=== PATIENT | male | born 1995 | race Hispanic/Latino ===

== ENCOUNTER 2021-08-15 10:25 | Inpatient (IN) | payer OTHER, SELFPAY ==
[2021-08-15] MEDS ORDERED: Boostrix 0.5 ML (Tdap) VIAL ONE (10:30)
[2021-08-15] MEDS ORDERED: Ondansetron PF 4 MG/2 ML Vial ONE ×2 (10:40→20:54)
[2021-08-15 10:54] LABS: Chloride 100 mmol/L (98-107); Potassium 3.2 mmol/L (3.5-5.1); Sodium 137 mmol/L (136-145)
[2021-08-15 10:55] LABS: ALT (SGPT) 85 U/L (8-55); AST (SGOT) 124 U/L (5-34); Albumin 4.6 g/dL (3.5-5.0); Alkaline Phosphatase 89 U/L (40-110); Anion Gap 18 mmol/L (10-20); BUN (Urea Nitrogen) 13 mg/dL (8.9-20.6); Calc. Creatinine Clearance 0 mL/min (70-130); Carbon Dioxide 22 mmol/L (22-29); Globulin 2.8 g/dL (2.4-3.5); Glucose 210 mg/dL (70-105); Lipase 177 U/L (8-78); Protein, Total 7.4 g/dL (6.0-8.3)
[2021-08-15 10:58] LABS: Band 27 % (5-11); Lymphocytes 7 % (21-51); MDiff Complete? YES; Mean Corpuscular HGB CONC 34.3 g/dL (32.0-36.0); Mean Corpuscular Hemoglobin 32.7 pg (27.0-31.0); Mean Corpuscular Volume 95.3 fL (78.0-98.0); Mean Platelet Volume 7.4 fL (7.4-10.4); Metamyelocyte 2 % (0-0); Monocytes 4 % (0-10); Neutrophil 60 % (42-75); Platelet Count 312 thou/uL (130-400); RBC Distribution Width 11.5 % (11.5-14.5)
[2021-08-15 11:41] LABS: SARS-CoV-2 NAA Rapid Test Not Detected (NotDetected)
[2021-08-15] MEDS ORDERED: Fentanyl 100 MCG/2 ML VIAL ONE ×3 (12:08→22:38)
[2021-08-15] MEDS ORDERED: Promethazine HCl 25 MG/ML VIAL ONE (12:16)
[2021-08-15] MEDS ORDERED: Iopamidol 370 76% 100 ML VIAL ONE (12:22)
[2021-08-15 12:25] LABS: Magnesium 1.9 mg/dL (1.6-2.6); Phosphorus 3.1 mg/dL (2.3-4.7)
[2021-08-15] MEDS ORDERED: Ondansetron PF 4 MG/2 ML Vial IVP PRN (12:34)
[2021-08-15] MEDS ORDERED: Dextrose 5% in Water 1,000 ML IV PRN (12:34)
[2021-08-15] MEDS ORDERED: hydrALAZINE 20 MG/ML VIAL SLOW IVP PRN (12:34)
[2021-08-15] MEDS ORDERED: Dextrose 50% Abboject 50 ML SYRINGE SLOW IVP PRN (12:34)
[2021-08-15] MEDS ORDERED: Morphine 4 MG/ML VIAL SLOW IVP PRN (12:34)
[2021-08-15] MEDS ORDERED: traMADol HCl 50 MG TAB PO PRN (12:39)
[2021-08-15] MEDS ORDERED: Potassium Phosphate 30 MMOL in Sodium Chloride 0.9% 250 ML 250 ML IVPB SCH (12:45)
[2021-08-15] MEDS ORDERED: Morphine 4 MG/ML VIAL ONE (13:53)
[2021-08-15] MEDS ORDERED: ceFAZolin Sodium (SDC) 2 GM in Premix Bag 1 BAG IVPB SCH (14:00)
[2021-08-15] MEDS ORDERED: CEFAZOLIN 1 GM VIAL SLOW IVP SCH (14:00)
[2021-08-15] MEDS ORDERED: Midazolam HCl 2 mg/2 ml Vial ONE (14:37)
[2021-08-15] MEDS ORDERED: Dexmedetomidine 200 MCG/2 ML VIAL ONE (14:37)
[2021-08-15] MEDS ORDERED: Phenylephrine 10 MG/ML VIAL ONE ×2 (14:38→21:14)
[2021-08-15 19:00] LABS: Bilirubin Negative (Negative); Blood, Urine Large (Negative); Glucose, Urine (Dipstick) Negative (Negative); Ketone, Urine 15 mg/dL (Negative); Leukocyte Negative (Negative); Nitrite Negative (Negative); Protein, Urine (Dipstick) 30 mg/dL (Neg-Trace); Urobilinogen 0.2 mg/dL (Less than 2); pH, Urine 5.5 (5.0-9.0)
[2021-08-15 19:04] LABS: Clarity Clear (Clear)
[2021-08-15 19:06] LABS: Squamous Epithelial 0-3 HPF (0-3)
[2021-08-15 19:10] LABS: Amphetamine Not Detected (NotDetected); Barbiturates Screen Not Detected (NotDetected); Benzodiazepine Screen Not Detected (NotDetected); Cocaine Metabolite Screen Not Detected (NotDetected); Methadone Not Detected (NotDetected); Methamphetamine Not Detected (NotDetected); Opiate Screen Detected (NotDetected); Oxycodone Screen Not Detected (NotDetected); Phencyclidine (PCP) Not Detected (NotDetected); THC/Cannabinoid Screen Detected (NotDetected); Tricyclic Screen Not Detected (NotDetected)
[2021-08-15] MEDS ORDERED: PHENYLEPHRINE-NS 100 MCG/ML 10 ML SYRINGE ONE (20:54)
[2021-08-15] MEDS ORDERED: Rocuronium Bromide 10 MG/ML (10ML VIAL) ONE (20:54)
[2021-08-15] MEDS ORDERED: PROPOFOL 200 MG/20 ML VIAL ONE (20:54)
[2021-08-15] MEDS ORDERED: ePHEDrine 50 MG/ML VIAL ONE (20:54)
[2021-08-15] MEDS ORDERED: Lidocaine 1% PF 5 ML VIAL ONE (20:54)
[2021-08-15] MEDS ORDERED: Esmolol 100 MG/10 ML VIAL ONE (20:54)
[2021-08-15] MEDS ORDERED: Glycopyrrolate 0.2 MG/ML 5 ML SYRINGE ONE (20:54)
[2021-08-15] MEDS ORDERED: Dexamethasone 20 MG/5 ML VIAL ONE (20:54)
[2021-08-15] MEDS ORDERED: HYDROmorphone 2 MG/ML VIAL ONE (21:53)
[2021-08-16 00:15] LABS: #Lymphocytes 1.1 thou/uL (1.20-3.40); #Monocytes 1.1 thou/uL (0.11-0.59); #Neutrophils 14.1 thou/uL (1.40-6.50); %Basophils 0.1 % (0.0-1.0); %Eosinophils 0.1 % (0.0-10.0); %Lymphocytes 6.9 % (21.0-51.0); %Monocytes 6.6 % (0.0-10.0); %Neutrophils 86.2 % (42.0-75.0); Hemoglobin 8.2 g/dL (14.0-18.0); Mean Corpuscular HGB CONC 36.6 g/dL (32.0-36.0); Mean Corpuscular Hemoglobin 34.4 pg (27.0-31.0); Mean Corpuscular Volume 93.9 fL (78.0-98.0); Mean Platelet Volume 7.4 fL (7.4-10.4); Platelet Count 157 thou/uL (130-400); RBC Distribution Width 11.3 % (11.5-14.5); Red Blood Cell (RBC) Count 2.39 mill/uL (4.70-6.10); White Blood Cell (WBC) Count 16.3 thou/uL (4.8-10.8)
[2021-08-16] MEDS ORDERED: Promethazine HCl 25 MG/ML VIAL ONE (00:56)
[2021-08-16] MEDS ORDERED: HYDROmorphone 2 MG/ML VIAL SLOW IVP PRN (01:04)
[2021-08-16] MEDS ORDERED: Promethazine HCl 25 MG/ML VIAL IM PRN (01:04)
[2021-08-16] MEDS ORDERED: Promethazine HCl 25 MG/ML VIAL IVPB PRN (01:04)
[2021-08-16] MEDS ORDERED: Ondansetron HCl/PF 4 MG/2 ML Vial IVP PRN (01:04)
[2021-08-16 01:09] VITALS: BMI 28.0
[2021-08-16] MEDS ORDERED: Fentanyl 100 MCG/2 ML VIAL ONE (01:11)
[2021-08-16] MEDS: Sodium Chloride 0.9% 1,000 ML IV SCH ×3 (03:24→05:46)
[2021-08-16] MEDS: Gabapentin 300 MG CAP PO SCH ×5 (03:25→21:02)
[2021-08-16] MEDS: Acetaminophen 500 MG TAB PO SCH ×5 (03:26→23:52)
[2021-08-16] MEDS: CEFAZOLIN 2 GM, Admixture Fee 1 EACH in Sodium Chloride 0.9% 100 ML IVPB SCH ×2 (03:27→05:46)
[2021-08-16] MEDS: Famotidine 20 MG TAB PO SCH ×3 (03:27→21:02)
[2021-08-16] MEDS: Senokot S 8.6-50 MG TAB PO SCH ×3 (03:27→21:02)
[2021-08-16 06:03] LABS: #Lymphocytes 1.9 thou/uL (1.20-3.40); #Monocytes 1.8 thou/uL (0.11-0.59); #Neutrophils 15.6 thou/uL (1.40-6.50); %Basophils 0.1 % (0.0-1.0); %Lymphocytes 9.8 % (21.0-51.0); %Monocytes 9.4 % (0.0-10.0); %Neutrophils 80.7 % (42.0-75.0); Hemoglobin 7.3 g/dL (14.0-18.0); Mean Corpuscular HGB CONC 34.5 g/dL (32.0-36.0); Mean Corpuscular Hemoglobin 32.8 pg (27.0-31.0); Mean Platelet Volume 7.8 fL (7.4-10.4); Platelet Count 154 thou/uL (130-400); RBC Distribution Width 11.2 % (11.5-14.5); Red Blood Cell (RBC) Count 2.23 mill/uL (4.70-6.10); White Blood Cell (WBC) Count 19.3 thou/uL (4.8-10.8)
[2021-08-16 06:40] LABS: ALT (SGPT) 47 U/L (8-55); AST (SGOT) 109 U/L (5-34); Albumin 3.2 g/dL (3.5-5.0); Alkaline Phosphatase 46 U/L (40-110); Anion Gap 13 mmol/L (10-20); BUN (Urea Nitrogen) 17 mg/dL (8.9-20.6); Bilirubin, Total 0.6 mg/dL (0.2-1.2); Calc. Creatinine Clearance 171 mL/min (70-130); Calcium 8.1 mg/dL (7.8-10.44); Carbon Dioxide 21 mmol/L (22-29); Chloride 106 mmol/L (98-107); Globulin 1.6 g/dL (2.4-3.5); Glucose 166 mg/dL (70-105); Lipase 29 U/L (8-78); Magnesium 1.5 mg/dL (1.6-2.6); Phosphorus 3.1 mg/dL (2.3-4.7); Potassium 4.5 mmol/L (3.5-5.1); Protein, Total 4.8 g/dL (6.0-8.3); Sodium 135 mmol/L (136-145)
[2021-08-16] MEDS: Polyethylene Glycol 3350 17 GM Packet PO SCH ×2 (08:53→17:37)
[2021-08-16] MEDS ORDERED: Magnesium Sulfate 4 GM in Sodium Chloride 0.9% 250 ML 250 ML IVPB SCH (09:00)
[2021-08-16] MEDS: Erythromycin Base 0.5% Oint 1 GM TUBE EA EYE SCH (21:01)
[2021-08-17 05:31] LABS: #Lymphocytes 2.4 thou/uL (1.20-3.40); #Monocytes 1.1 thou/uL (0.11-0.59); %Basophils 0.1 % (0.0-1.0); %Eosinophils 0.1 % (0.0-10.0); %Lymphocytes 22.9 % (21.0-51.0); %Monocytes 10.7 % (0.0-10.0); %Neutrophils 66.3 % (42.0-75.0); Mean Corpuscular HGB CONC 34.5 g/dL (32.0-36.0); Mean Corpuscular Hemoglobin 32.8 pg (27.0-31.0); Mean Corpuscular Volume 95.1 fL (78.0-98.0); Mean Platelet Volume 7.3 fL (7.4-10.4); Platelet Count 135 thou/uL (130-400); RBC Distribution Width 11.3 % (11.5-14.5); Red Blood Cell (RBC) Count 1.51 mill/uL (4.70-6.10); White Blood Cell (WBC) Count 10.5 thou/uL (4.8-10.8)
[2021-08-17 05:38] LABS: Anion Gap 8 mmol/L (10-20); BUN (Urea Nitrogen) 10 mg/dL (8.9-20.6); Calc. Creatinine Clearance 176 mL/min (70-130); Carbon Dioxide 26 mmol/L (22-29); Chloride 107 mmol/L (98-107); Glucose 111 mg/dL (70-105); Magnesium 1.9 mg/dL (1.6-2.6); Phosphorus 1.7 mg/dL (2.3-4.7); Potassium 3.9 mmol/L (3.5-5.1); Sodium 137 mmol/L (136-145)
[2021-08-17] MEDS: Acetaminophen 500 MG TAB PO SCH ×4 (06:49→23:48)
[2021-08-17] MEDS ORDERED: Magnesium 2 GM/50 ML 2 GM in Premix Bag 1 BAG IVPB SCH (07:30)
[2021-08-17] MEDS ORDERED: Sodium Phosphate 30 MMOL in Sodium Chloride 0.9% 250 ML 250 ML IVPB SCH (07:45)
[2021-08-17] MEDS ORDERED: Ferrous Sulfate 325 MG TAB PO SCH (08:00)
[2021-08-17] MEDS: Polyethylene Glycol 3350 17 GM Packet PO SCH (08:28)
[2021-08-17] MEDS: Ascorbic Acid 500 mg Chewable Tablet PO SCH ×2 (08:28→20:27)
[2021-08-17] MEDS: traMADol HCl 50 MG TAB PO PRN (08:28)
[2021-08-17] MEDS: Senokot S 8.6-50 MG TAB PO SCH ×2 (08:29→20:29)
[2021-08-17] MEDS: Famotidine 20 MG TAB PO SCH ×2 (08:30→20:28)
[2021-08-17] MEDS: Gabapentin 300 MG CAP PO SCH ×3 (08:30→20:29)
[2021-08-17] MEDS: Erythromycin Base 0.5% Oint 1 GM TUBE EA EYE SCH ×2 (08:31→20:28)
[2021-08-17] MEDS: Ferrous Sulfate 325 MG TAB PO SCH ×2 (08:37→20:28)
[2021-08-18] MEDS: Acetaminophen 500 MG TAB PO SCH ×3 (06:14→18:36)
[2021-08-18 06:21] LABS: #Lymphocytes 2.2 thou/uL (1.20-3.40); #Monocytes 0.9 thou/uL (0.11-0.59); #Neutrophils 6.9 thou/uL (1.40-6.50); %Basophils 0.1 % (0.0-1.0); %Eosinophils 0.4 % (0.0-10.0); %Monocytes 9.3 % (0.0-10.0); %Neutrophils 68.3 % (42.0-75.0); Hemoglobin 6.2 g/dL (14.0-18.0); Mean Corpuscular HGB CONC 34.2 g/dL (32.0-36.0); Mean Corpuscular Hemoglobin 32.5 pg (27.0-31.0); Mean Corpuscular Volume 95.1 fL (78.0-98.0); Mean Platelet Volume 6.8 fL (7.4-10.4); Platelet Count 143 thou/uL (130-400); RBC Distribution Width 12.2 % (11.5-14.5); Red Blood Cell (RBC) Count 1.92 mill/uL (4.70-6.10); White Blood Cell (WBC) Count 10.1 thou/uL (4.8-10.8)
[2021-08-18 07:01] LABS: Anion Gap 8 mmol/L (10-20); BUN (Urea Nitrogen) 5 mg/dL (8.9-20.6); Calc. Creatinine Clearance 214 mL/min (70-130); Carbon Dioxide 28 mmol/L (22-29); Chloride 105 mmol/L (98-107); Glucose 100 mg/dL (70-105); Magnesium 1.8 mg/dL (1.6-2.6); Phosphorus 2.4 mg/dL (2.3-4.7); Potassium 3.9 mmol/L (3.5-5.1); Sodium 137 mmol/L (136-145)
[2021-08-18] MEDS: Ascorbic Acid 500 mg Chewable Tablet PO SCH ×2 (09:32→21:28)
[2021-08-18] MEDS: Gabapentin 300 MG CAP PO SCH ×3 (09:32→21:23)
[2021-08-18] MEDS: Famotidine 20 MG TAB PO SCH ×2 (09:32→21:26)
[2021-08-18] MEDS: Ferrous Sulfate 325 MG TAB PO SCH ×2 (09:32→21:23)
[2021-08-18] MEDS: traMADol HCl 50 MG TAB PO PRN ×2 (09:36→21:27)
[2021-08-18] MEDS: Erythromycin Base 0.5% Oint 1 GM TUBE EA EYE SCH ×2 (10:14→21:26)
[2021-08-18] MEDS: Senokot S 8.6-50 MG TAB PO SCH ×2 (10:15→21:23)
[2021-08-18 18:44] LABS: Hemoglobin 7.7 g/dL (14.0-18.0)
[2021-08-18] MEDS: Cyclobenzaprine 10 MG TAB PO PRN (21:23)
[2021-08-19] MEDS: Acetaminophen 500 MG TAB PO SCH ×5 (00:50→23:23)
[2021-08-19 05:31] LABS: #Eosinphils 0.3 thou/uL (0.0-0.7); #Lymphocytes 2.6 thou/uL (1.20-3.40); #Neutrophils 4.8 thou/uL (1.40-6.50); %Basophils 0.1 % (0.0-1.0); %Eosinophils 3.1 % (0.0-10.0); %Lymphocytes 29.9 % (21.0-51.0); %Monocytes 11.1 % (0.0-10.0); %Neutrophils 55.7 % (42.0-75.0); Hemoglobin 7.3 g/dL (14.0-18.0); Mean Corpuscular HGB CONC 35.2 g/dL (32.0-36.0); Mean Corpuscular Hemoglobin 32.6 pg (27.0-31.0); Mean Corpuscular Volume 92.6 fL (78.0-98.0); Mean Platelet Volume 6.3 fL (7.4-10.4); Platelet Count 179 thou/uL (130-400); RBC Distribution Width 13.1 % (11.5-14.5); Red Blood Cell (RBC) Count 2.25 mill/uL (4.70-6.10); White Blood Cell (WBC) Count 8.6 thou/uL (4.8-10.8)
[2021-08-19] MEDS: Ferrous Sulfate 325 MG TAB PO SCH ×2 (08:42→21:19)
[2021-08-19] MEDS: Gabapentin 300 MG CAP PO SCH ×3 (08:42→21:19)
[2021-08-19] MEDS: Ascorbic Acid 500 mg Chewable Tablet PO SCH ×2 (08:42→21:19)
[2021-08-19] MEDS: Famotidine 20 MG TAB PO SCH (08:42)
[2021-08-19] MEDS: Polyethylene Glycol 3350 17 GM Packet PO SCH (08:43)
[2021-08-19] MEDS: Erythromycin Base 0.5% Oint 1 GM TUBE EA EYE SCH ×2 (08:43→21:18)
[2021-08-19] MEDS: Senokot S 8.6-50 MG TAB PO SCH (08:43)
[2021-08-19] MEDS: Enoxaparin Sodium 40 MG/0.4 ML SYRINGE SC SCH (10:37)
[2021-08-19] MEDS: Cyclobenzaprine 10 MG TAB PO PRN (23:24)
[2021-08-20] MEDS: Acetaminophen 500 MG TAB PO SCH (05:47)
[2021-08-20 06:34] LABS: #Eosinphils 0.3 thou/uL (0.0-0.7); #Monocytes 1.2 thou/uL (0.11-0.59); #Neutrophils 6.3 thou/uL (1.40-6.50); %Basophils 0.3 % (0.0-1.0); %Eosinophils 3.5 % (0.0-10.0); %Lymphocytes 20.2 % (21.0-51.0); %Monocytes 12.2 % (0.0-10.0); Hemoglobin 8.3 g/dL (14.0-18.0); Mean Corpuscular HGB CONC 35.5 g/dL (32.0-36.0); Mean Corpuscular Hemoglobin 33.1 pg (27.0-31.0); Mean Corpuscular Volume 93.4 fL (78.0-98.0); Mean Platelet Volume 6.1 fL (7.4-10.4); Platelet Count 293 thou/uL (130-400); RBC Distribution Width 13.2 % (11.5-14.5); Red Blood Cell (RBC) Count 2.49 mill/uL (4.70-6.10); White Blood Cell (WBC) Count 9.8 thou/uL (4.8-10.8)
[2021-08-20] MEDS: Ascorbic Acid 500 mg Chewable Tablet PO SCH (07:53)
[2021-08-20] MEDS: Ferrous Sulfate 325 MG TAB PO SCH (07:53)
[2021-08-20] MEDS: Gabapentin 300 MG CAP PO SCH (07:53)
[2021-08-20] MEDS: Enoxaparin Sodium 40 MG/0.4 ML SYRINGE SC SCH (10:19)
[2021-08-20 12:24] VITALS: BP 125/70; TEMP 98.5
== END 2021-08-20 16:50 | disposition home or self-care (01) | DRG 956 ==
LOC: ERS 10:25 → SURG A 12:31
PROVIDERS: ADMIT Specialist; ATTEND Surgery
PROC: 0QS704Z Reposition Left Upper Femur with Internal Fixation Device, Open Approach (ICD-10-PCS; principal; 2021-08-15)
PROC: 0QSC04Z Reposition Left Lower Femur with Internal Fixation Device, Open Approach (ICD-10-PCS; 2021-08-15)
PROC: 30233N1 Transfusion of Nonautologous Red Blood Cells into Peripheral Vein, Percutaneous Approach (ICD-10-PCS; 2021-08-17)
DX: S72.092A Other fracture of head and neck of left femur, initial encounter for closed fracture (principal); S27.0XXA Traumatic pneumothorax, initial encounter; S72.492B Other fracture of lower end of left femur, initial encounter for open fracture type I or II; S27.321A Contusion of lung, unilateral, initial encounter; N17.9 Acute kidney failure, unspecified; Z20.822 Contact with and (suspected) exposure to COVID-19; S51.012A Laceration without foreign body of left elbow, initial encounter; S01.112A Laceration without foreign body of left eyelid and periocular area, initial encounter; E83.42 Hypomagnesemia; V43.52XA Car driver injured in collision with other type car in traffic accident, initial encounter
CPT/HCPCS: 36415; 36430; 70450; 70486; 71045; 71260; 72125; 72170; 74177; 76000; 76870; 80048; 80053; 80306; 81003; 81015; 83690; 83735; 84100; 85025; 86850; 86900; 86901; 90471; 90715; 93005; 93010; 93976; 96374; 96375; C1713; G0390; J0690; J1100; J1170; J1650; J2250; J2270; J2370; J2405; J2550; J2704; J3010; J3475; J3490; J7050; P9016; Q9967; U0002